=== PATIENT | female | born 1940 | race Caucasian/White ===

== ENCOUNTER 2023-03-17 13:40 | Outpatient (CLI) | payer MEDICARE, SELFPAY ==
[2023-03-17 13:54] LABS: Basophils Absolute Auto 0.1 K/mm3 (0.0-0.1); Basophils Percent Auto 0.6 % (0.2-1.2); Eosinophils Absolute Auto 0.2 K/mm3 (0-0.3); Eosinophils Percent Auto 2.1 % (0-4.4); Hematocrit 43.6 % (37.0-47.0); Hemoglobin 14.3 g/dL (12.0-15.0); Immature Granulocyte Absolute 0.03 K/mm3 (0.00-0.031); Immature Granulocyte Percent A 0.3 % (0-0.5); Lymphocytes Absolute Auto 2.94 K/mm3 (0.9-3.2); Lymphocytes Percent Auto 29.7 % (18.3-44.2); Mean Corpuscular HGB Conc 32.8 g/dl (32-36); Mean Corpuscular Hemoglobin 31.6 pg (26-34); Mean Corpuscular Volume 96.5 fl (80-100); Mean Platelet Volume 9.5 fl (7.4-10.4); Monocytes Absolute Auto 0.8 K/mm3 (0.1-0.6); Monocytes Percent Auto 8.5 % (2.6-8.5); Neutrophils Absolute Auto 5.8 K/mm3 (1.3-6.7); Neutrophils Percent Auto 58.8 % (45.5-73.1); Platelet Count Result 306 k/mm3 (150-375); Red Blood Count 4.52 M/mm3 (4.2-5.4); Red Cell Distribution Width 13.3 % (11.5-14.5); White Blood Count 9.9 K/mm3 (4.5-10.0)
[2023-03-17 14:02] LABS: Alanine Aminotransferase 23 U/L (6-35); Albumin Level 4.7 g/dL (3.5-5.1); Alkaline Phosphatase 75 U/L (38-126); Anion Gap 5 mmol/L (8-16); Aspartate Amino Transferase 29 U/L (14-36); Bilirubin,Total 0.7 mg/dL (0.2-1.3); Blood Urea Nitrogen 15 mg/dL (7-17); Calcium 9.6 mg/dL (8.4-10.2); Carbon Dioxide 28 mmol/L (22-30); Chloride 104 mmol/L (98-107); Estimated Glomerular Filt Rate > 60; Glucose 83 mg/dL (65-110); Potassium 4.7 mmol/L (3.4-5.0); Sodium 137 mmol/L (137-145)
[2023-03-21 11:02] LABS: Vitamin D 1,25 (OH)2 Total 49 pg/mL (18-72); Vitamin D2 1,25 (OH)2 <8 pg/mL; Vitamin D3 1,25 (OH)2 49 pg/mL
== END 2023-03-17 13:41 | disposition home or self-care (01) ==
PROVIDERS: PCP Family Medicine; Visit Provider Family Medicine
DX: R79.89 Other specified abnormal findings of blood chemistry (principal); E55.9 Vitamin D deficiency, unspecified; I10 Essential (primary) hypertension; Z13.29 Encounter for screening for other suspected endocrine disorder
CPT/HCPCS: 36415; 80053; 82652; 84443; 85025

== ENCOUNTER 2023-03-23 12:48 | Outpatient (CLI) | payer MEDICARE, SELFPAY ==
--- NOTE | ~2023-03-23 | DEXA_ITS ---
Bone Density Report Name: ALAN NGUYEN Age: 83 Sex: Female Ethnicity: White Date of : 1940 Indication: postmenopausal; screening for osteoporosis; height loss; Referring Provider: HOSSEIN REYEZ Study: Bone densitometry was performed. Exam Date: March 23, 2023 Accession number: [id number] Bone Density: Region BMD T-score Z-score Classification AP Spine(L1-L4) 0.929 -1.1 1.8 Osteopenia Femoral Neck (Left) 0.692 -1.4 1.1 Osteopenia Total Hip (Left) 0.856 -0.7 1.6 Normal Femoral Neck (Right) 0.692 -1.4 1.1 Osteopenia Total Hip (Right) 0.856 -0.7 1.6 Normal Total Hip Mean 0.856 -0.7 1.6 Normal World Health Organization criteria for BMD impression classify patients as: Normal (T-score at or above -1.0), Osteopenia (T-score between -1.0 and -2.5), or Osteoporosis (T-score at or below -2.5). 10-year Fracture Risk(1): Major Osteoporotic Fracture 13% Hip Fracture 3.5% Reported Risk Factors: [place] (), Neck BMD=0.692, BMI=26.1 (1) FRAX(R) Version 3.08. Fracture probability calculated for an untreated patient. Fracture probability may be lower if the patient has received treatment. Clinical Information Provided by Patient: Has used the following medications: Vitamin D Patient maximum height was 62 Menopause Age: 53 Onset of menses at age 13 Number of children 2 Impression: The patient has low bone mass, based on the Left Femoral Neck T-score. The patient has an estimated ten-year risk of hip fracture of 3.5% and an estimated ten-year risk of major fracture of 13%, based on the WHO FRAX algorithm. Discussion: BONE DENSITY IS LOW AT ONE OR MORE SKELETAL SITES. THE PATIENT'S BMD AND CLINICAL RISK FACTORS CONTRIBUTE TO THIS PATIENT'S INCREASED RISK OF FRACTURE. This patient's lowest T-score is low at one or more skeletal sites. It meets the World Health Organization's (WHO) criteria for ?low bone mass? (T-score between -1.0 and -2.5). The patient's 10-year risk of hip fracture as calculated by FRAX exceeds the threshold where pharmacological therapy is recommended by the National Osteoporosis Foundation (NOF). However, all treatment decisions require clinical judgment and consideration of individual patient factors, including patient preferences, comorbidities, previous drug use, risk factors not captured in the FRAX model (e.g., frailty, falls, vitamin D deficiency, increased bone turnover, interval significant decline in bone density) and possible under or overestimation of fracture risk by FRAX. The patient should follow a healthful lifestyle (good nutrition with adequate calcium and vitamin D, and appropriate weight-bearing exercise). Follow-Up: Consider a repeat BMD and Vertebral Fracture Assessment (VFA) exam in 2 years or sooner if medically n
== END 2023-03-23 12:49 | disposition home or self-care (01) ==
LOC: ANHIMG 12:50
PROVIDERS: PCP Family Medicine; Visit Provider Family Medicine
DX: Z78.0 Asymptomatic menopausal state (principal); M85.89 Other specified disorders of bone density and structure, multiple sites
CPT/HCPCS: 77080

== ENCOUNTER 2023-12-16 15:53 | Emergency (ER) | payer MEDICARE, SELFPAY ==
[2023-12-16 16:12] VITALS: BP 179/93; PULSE 97; RESP 18; TEMP 36.6; O2SAT 100
--- NOTE | 2023-12-16 17:11 | ED.WOUNDLAC ---
HPI - Wound/Laceration General Chief Complaint: Skin/Abscess/Foreign Body Stated Complaint: wound to left arm/shoulder Time Seen by Provider: 12/16/23 17:11 Source: patient Mode of arrival: ambulatory Limitations: no limitations History of Present Illness HPI narrative: Ana is an 83-year-old female patient presenting to the ER today with complaints of a wound to her left arm and shoulder. She states she does not know how long this has been going on for however she noticed it after walking outside in a grassy area. States that it is slightly painful and rates it a 2/10. She denies any fever or chills. Does have some open sores to the left shoulder and redness and swelling to the arm. Related Data Home Medications Medication Instructions Recorded Confirmed cholecalciferol (vitamin D3) 50 50 mcg PO DAILY 09/20/22 03/17/23 mcg (2,000 unit) capsule donepezil 10 mg tablet 10 mg PO QHS 09/20/22 03/17/23 latanoprost 0.005 % eye drops 1 drp EACH EYE DAILY 09/20/22 03/17/23 timolol 0.5 %-brimon 0.15 %-dorzol drp ophthalmic (eye) 09/20/22 03/17/23 2 %-latanopro 0.005 %(PF) eye drops turmeric 100 mg-lance 150 cap PO 09/20/22 03/17/23 mg-olive 50 mg-oreg 150 mg-capryl capsule Allergies Allergy/AdvReac Type Severity Reaction Status Date / Time mushroom Allergy Intermediate Swelling Verified 12/16/23 16:15 of Lip/Tongue/Throat Penicillins Allergy Intermediate Swelling Verified 12/16/23 16:15 of Lip/Tongue/Throat Review of Systems Review of Systems: Pertinent positives per HPI. Patient denies any fever, chills, headache, visual changes, dizziness, cough, runny nose, sore throat, shortness of breath, chest pain, palpitations, nausea, vomiting, diarrhea, constipation, abdominal pain, or any urinary issues. [facility] Past Medical History Medical History Alcohol use Alzheimer's dementia Benign essential HTN Benign mass of parotid gland Hx of needle biopsy Family History Family History Father Diabetes mellitus Hypertension Heart disease Mother Depression Thyroid disorder Hypertension Sibling Thyroid disorder Heart disease Hypertension Diabetes mellitus Social History Social History Social History: Smoking status: Never smoker Second hand tobacco smoke exposure: No Alcohol intake: current Drinks per week: 7 Alcohol use details: beer Substance use: never Substance use type: does not use Lack of Transportation: No Lack of Food: Never True Current Housing: I Have Housing Concerned About Future Housing: No Difficulty Paying Gas/Electric Bills: No Difficulty Paying for Meds: No Currently Unemployed: YES Education: Decline to Answer Difficulty w/ Childcare or Family Care: No Living arrangements: alone Occupation/Education: retired Gender identity (if verbalized by the patient): Female Sexual Orientation (if Verbalized by the Patient): Straight or Heterosexual Spiritual care concerns: No Agree to blood products: Yes Comments At the time of my signature, I reviewed and agree with the nursing past medical, surgical, social, and family history. There is no relevant family history pertinent to the patient complaint. Exam Narrative: General: Well-developed, well nourished, in no apparent distress Head: Normocephalic, atraumatic. Cardio: Regular rate and rhythm, s1 and s2 normal, no murmur appreciated. Resp: Clear to auscultation bilaterally, no rhonchi, rales, wheezing or rubs. Integumentary: Brantley, warm, and dry, open wounds to the left posterior shoulder with yellow eschar tissue, redness and mild tenderness to the left posterior shoulder down the lateral arm. Course Course Emergency Course: Portions of this record may have been created
[2023-12-16 18:00] VITALS: BP 167/64; O2SAT 100
[2023-12-16 18:09] LABS: Basophils Absolute Auto 0.1 K/mm3 (0.0-0.1); Basophils Percent Auto 0.5 % (0.2-1.2); Eosinophils Absolute Auto 0.1 K/mm3 (0-0.3); Eosinophils Percent Auto 0.8 % (0-4.4); Hematocrit 38.3 % (37.0-47.0); Hemoglobin 12.8 g/dL (12.0-15.0); Immature Granulocyte Absolute 0.06 K/mm3 (0.00-0.031); Immature Granulocyte Percent A 0.5 % (0-0.5); Lymphocytes Absolute Auto 3.59 K/mm3 (0.9-3.2); Lymphocytes Percent Auto 27.4 % (18.3-44.2); Mean Corpuscular HGB Conc 33.4 g/dl (32-36); Mean Corpuscular Hemoglobin 32.3 pg (26-34); Mean Corpuscular Volume 96.7 fl (80-100); Monocytes Absolute Auto 1.2 K/mm3 (0.1-0.6); Monocytes Percent Auto 9.2 % (2.6-8.5); Neutrophils Absolute Auto 8.1 K/mm3 (1.3-6.7); Neutrophils Percent Auto 61.6 % (45.5-73.1); Platelet Count Result 416 k/mm3 (150-375); Red Blood Count 3.96 M/mm3 (4.2-5.4); Red Cell Distribution Width 11.9 % (11.5-14.5); White Blood Count 13.1 K/mm3 (4.5-10.0)
[2023-12-16 18:17] VITALS: BP 151/67; O2SAT 100
[2023-12-16 18:21] LABS: Lactic Acid Reflex 1.9 mmol/L (0.7-2.0)
[2023-12-16 18:23] LABS: Alanine Aminotransferase 15 U/L (6-35); Anion Gap 14 mmol/L (4-12); Aspartate Amino Transferase 22 U/L (14-36); Bilirubin,Total 0.7 mg/dL (0.2-1.3); Blood Urea Nitrogen 14 mg/dL (7-17); Calcium 9.3 mg/dL (8.4-10.2); Carbon Dioxide 23 mmol/L (22-30); Chloride 101 mmol/L (98-107); Estimated CRCL calculation 32 ml/min; Estimated Glomerular Filt Rate 53; Glucose 110 mg/dL (65-110); Potassium 3.8 mmol/L (3.4-5.0); Sodium 138 mmol/L (137-145)
[2023-12-16 18:24] LABS: Albumin Level 4.6 g/dL (3.5-5.1); Alkaline Phosphatase 81 U/L (38-126)
[2023-12-16 18:39] LABS: CRP 2.3 mg/dL (<1.0)
[2023-12-16 18:49] LABS: Erythrocyte Sedimentation Rate 46 mm/hr (0-20)
[2023-12-16 19:00] VITALS: BP 163/77; PULSE 94; RESP 16; O2SAT 100
[2023-12-16] MEDS: DOXYCYCLINE HYCLATE 100 MG TABLET PO (19:51)
== END 2023-12-16 19:56 | disposition home or self-care (01) ==
PROVIDERS: Emergency Provider Nurse Practitioner Family; PCP Family Medicine
DX: L08.9 Local infection of the skin and subcutaneous tissue, unspecified (principal); B96.89 Other specified bacterial agents as the cause of diseases classified elsewhere; G30.9 Alzheimer's disease, unspecified; F02.80 Dementia in other diseases classified elsewhere, unspecified severity, without behavioral disturbance, psychotic disturbance, mood disturbance, and anxiety; I10 Essential (primary) hypertension
CPT/HCPCS: 36415; 80053; 83605; 85025; 85652; 86140; 87040; 87070; 87075; 87077; 87181; 87205; 99283; A9270

== ENCOUNTER 2023-12-18 10:33 | Observation (INO) | payer MEDICARE, SELFPAY ==
[2023-12-18] VITALS (7 sets, daily range): BP systolic 152–189; BP diastolic 65–76; PULSE 77–96; RESP 14–20; TEMP 35.6–37.4; O2SAT 100; BMI 25.8
--- NOTE | ~2023-12-18 | XR_ITS ---
XR chest 1V portable Ordering provider: Adrián Escobedo MD History: 83 years Female with . pos blood cultures . Comparison: None. FINDINGS: MEDIASTINUM: The cardiac silhouette is not enlarged. LUNGS: No infiltrates, effusions or pneumothorax. Tiny granuloma in the left upper lobe. OTHER: No free air under the diaphragm. IMPRESSION: No acute cardiopulmonary pathology. Reviewed, dictated and finalized at location A.
[2023-12-18 11:14] LABS: Basophils Absolute Auto 0.1 K/mm3 (0.0-0.1); Basophils Percent Auto 0.6 % (0.2-1.2); Eosinophils Absolute Auto 0.1 K/mm3 (0-0.3); Eosinophils Percent Auto 0.9 % (0-4.4); Hemoglobin 12.3 g/dL (12.0-15.0); Immature Granulocyte Absolute 0.04 K/mm3 (0.00-0.031); Immature Granulocyte Percent A 0.4 % (0-0.5); Lymphocytes Absolute Auto 2.47 K/mm3 (0.9-3.2); Lymphocytes Percent Auto 27.2 % (18.3-44.2); Mean Corpuscular HGB Conc 33.2 g/dl (32-36); Mean Corpuscular Hemoglobin 31.9 pg (26-34); Mean Corpuscular Volume 96.1 fl (80-100); Monocytes Absolute Auto 0.8 K/mm3 (0.1-0.6); Monocytes Percent Auto 9.2 % (2.6-8.5); Neutrophils Absolute Auto 5.6 K/mm3 (1.3-6.7); Neutrophils Percent Auto 61.7 % (45.5-73.1); Platelet Count Result 376 k/mm3 (150-375); Red Blood Count 3.85 M/mm3 (4.2-5.4); Red Cell Distribution Width 11.9 % (11.5-14.5); White Blood Count 9.1 K/mm3 (4.5-10.0)
[2023-12-18] MEDS: SODIUM CHLORIDE 0.9% IV 1,000 ML 999 ML IV CONT (11:16)
[2023-12-18 11:26] LABS: Lactic Acid Reflex 2.8 mmol/L (0.7-2.0)
[2023-12-18 11:31] LABS: Alanine Aminotransferase 13 U/L (6-35); Albumin Level 4.1 g/dL (3.5-5.1); Alkaline Phosphatase 62 U/L (38-126); Anion Gap 11 mmol/L (4-12); Aspartate Amino Transferase 19 U/L (14-36); Bilirubin,Total 0.5 mg/dL (0.2-1.3); Blood Urea Nitrogen 18 mg/dL (7-17); CRP 1.2 mg/dL (<1.0); Calcium 8.9 mg/dL (8.4-10.2); Carbon Dioxide 23 mmol/L (22-30); Chloride 102 mmol/L (98-107); Estimated CRCL calculation 34 ml/min; Estimated Glomerular Filt Rate > 60; Glucose 175 mg/dL (65-110); Magnesium 1.9 mg/dL (1.6-2.3); Potassium 3.7 mmol/L (3.4-5.0); Sodium 136 mmol/L (137-145)
[2023-12-18 11:45] LABS: Erythrocyte Sedimentation Rate 35 mm/hr (0-20)
[2023-12-18 12:03] LABS: Influenza A QL RT-PCR Negative (Negative); Influenza B QL RT-PCR Negative (Negative); RSV RNA, RT-PCR Negative (Negative); SARS-CoV-2 RNA PCR Negative (Negative)
[2023-12-18 12:44] LABS: Appearance Urine Clear (Clear); Bilirubin Urine Negative (Negative); Blood Urine Negative (Negative); Color Urine Yellow (Yellow); Glucose Urine UA Negative (Negative); Ketones Urine Negative (Negative); Leukocyte Esterase Ur Negative LEU/UL (Negative); Nitrate Urine Negative (Negative); Protein Urine Negative (Negative); Specific Grav Ur 1.008 (1.001-1.035)
[2023-12-18 12:51] LABS: Add Urine Microscopic? NO
--- NOTE | 2023-12-18 12:51 | ED.GENADULT ---
HPI - General Adult General Chief complaint: Unspecified Stated complaint: abnormal labs Time Seen by Provider: 12/18/23 10:43 History of Present Illness HPI narrative: This is an 83-year-old female with dementia presenting for positive blood cultures. She was seen here several days ago diagnosed with cellulitis of the left upper extremity. She was discharged on doxycycline. She was then called their primary care physician to inform her that she had a positive blood culture to return to the ED for evaluation. The patient is a poor historian due to dementia. She is unsure of when the cellulitis started on her upper arm. She believes that she may have been exposed to poison shawna but is unsure. She is denying any other complaints other than some pain and itching to her left arm. Related Data Home Medications Medication Instructions Recorded Confirmed cholecalciferol (vitamin D3) 50 50 mcg PO DAILY 09/20/22 03/17/23 mcg (2,000 unit) capsule donepezil 10 mg tablet 10 mg PO QHS 09/20/22 03/17/23 latanoprost 0.005 % eye drops 1 drp EACH EYE DAILY 09/20/22 03/17/23 timolol 0.5 %-brimon 0.15 %-dorzol drp ophthalmic (eye) 09/20/22 03/17/23 2 %-latanopro 0.005 %(PF) eye drops turmeric 100 mg-lance 150 cap PO 09/20/22 03/17/23 mg-olive 50 mg-oreg 150 mg-capryl capsule Allergies Allergy/AdvReac Type Severity Reaction Status Date / Time mushroom Allergy Intermediate Swelling Verified 12/18/23 10:42 of Lip/Tongue/Throat Penicillins Allergy Intermediate Swelling Verified 12/18/23 10:42 of Lip/Tongue/Throat PMFSH Past Medical History Medical History Alcohol use Alzheimer's dementia Benign essential HTN Benign mass of parotid gland Hx of needle biopsy Family History Family History Father Diabetes mellitus Hypertension Heart disease Mother Depression Thyroid disorder Hypertension Sibling Thyroid disorder Heart disease Hypertension Diabetes mellitus Social History Social History Social History: Smoking status: Never smoker Second hand tobacco smoke exposure: No Alcohol intake: current Drinks per week: 7 Alcohol use details: beer Substance use: never Substance use type: does not use Lack of Transportation: No Lack of Food: Never True Current Housing: I Have Housing Concerned About Future Housing: No Difficulty Paying Gas/Electric Bills: No Difficulty Paying for Meds: No Currently Unemployed: YES Education: Decline to Answer Difficulty w/ Childcare or Family Care: No Living arrangements: alone Occupation/Education: retired Gender identity (if verbalized by the patient): Female Sexual Orientation (if Verbalized by the Patient): Straight or Heterosexual Spiritual care concerns: No Agree to blood products: Yes Exam Narrative: APPEARANCE: No apparent distress. Head: atraumatic. EYES: EOMI, NOSE: Atraumatic NECK: Trachea midline RESPIRATORY: No increased rate of breathing clear auscultation CARDIOVASCULAR: RRR, ABDOMINAL: Non-distended soft nontender MUSCULOSKELETAl: No obvious deformities NEURO: Alert. Moving 4/4 extremities SKIN:: Left upper extremity has mottled areas of erythema, warmth and central ulceration. No areas of fluctuance to indicate abscess. No bullae or crepitus. Hand is neurovascularly intact. PSYCHIATRIC: Normal affect Course Vital Signs Vital signs: Vital Signs Temperature 97.8 F 12/18/23 10:38 Pulse Rate 96 12/18/23 10:38 Respiratory Rate 16 12/18/23 10:38 Blood Pressure 167/72 H 12/18/23 10:38 Pulse Oximetry 100 12/18/23 10:38 Oxygen Delivery Room Air 12/18/23 10:38 Temperature 97.8 F 12/18/23 10:38 Pulse Rate 85 12/18/23 10:47 Respiratory Rate 18 12/18/23 10:47 Blood Pressure 153/7
[2023-12-18 13:59] LABS: MRSA (PCR) NOT DETECTED (NOT DETECTE)
[2023-12-18 14:12] LABS: Reflex Lactic Acid Yes or No Add Lactic
--- NOTE | 2023-12-18 14:29 | PM.IMHP ---
H&P: HPI History of Present Illness Date/Time: 12/18/23 13:30 Chief Complaint: Positive blood culture. Narrative: This is a pleasant 83-year-old female with dementia and hypertension who presented to the emergency current via private vehicle at the instruction of her primary care physician for evaluation after she was found to have 1 positive blood culture drawn 12/18/2023. She is not an accurate historian due to her memory loss and some of the following history is supplemented via a review of her EMR as well as information provided by her daughter, Sharita. The patient typically wears long sleeves however she was wearing short sleeves the other day and Sharita noticed some redness and several wounds on the patient's arm so she brought her into the ED for evaluation. The patient was uncertain as to how the wounds occurred and she thinks maybe she was walking her dog in a grassy area and perhaps she got a bug bite. She was prescribed doxycycline and mupirocin cream for presumed bacterial skin infection and she was discharged home. She has been taking the antibiotic and is putting the ointment on but she cannot say whether or not it is improving. She has some discomfort in the left shoulder area and she reports that area is pruritic. She denies fever, chills, sweats, malaise, nausea, and vomiting. No known history of MRSA, eczema, autoimmune diseases, or any other skin conditions. In the ED: She was afebrile on arrival with blood pressures in the 150s systolic. Labs were significant for a WBC count of 9.1, ESR 35, CRP 1.2, lactic acid 2.8, BUN 18, glucose 175. She was given a 2 L normal saline bolus with normalization of her lactic acid level. She was also given 1500 mg of vancomycin and she is being admitted in this setting for further treatment and evaluation. Review of Systems Review of Systems: 12 systems were reviewed and are negative except for as per HPI. 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 Code status: Full code. Smoking status: Never smoker Second hand tobacco smoke exposure: No Alcohol intake: current Drinks per week: 7 Alcohol use details: 1 beer a day. Substance use: never Substance use type: does not use Do You Feel Safe in your Home?: Yes Lack of Transportation: No Lack of Food: Never True Current Housing: I Have Housing Concerned About Future Housing: No Difficulty Paying Gas/Electric Bills: No Difficulty Paying for Meds: No Currently Unemployed: No Education: Master's Degree or Higher Difficulty w/ Childcare or Family Care: No Spiritual care concerns: No Agree to blood products: Yes Meds Home Medications and Allergies Home Medications Medication Instructions Recorded Confirmed Type cholecalciferol (vitamin D3) 50 50 mcg PO DAILY 09/20/22 12/18/23 History mcg (2,000 unit) capsule donepezil 10 mg tablet 10 mg PO DAILY 09/20/22 12/18/23 History doxycycline monohydrate 100 mg 100 mg PO BID 10 days #20 caps 12/16/23 12/18/23 Rx capsule irbesartan 150 mg tablet 150 mg PO HS 12/18/23 12/18/23 History Allergies Allergy/AdvReac Type Severity Reaction Status Date / Time mushroom Allergy Intermediate Swelling Verified 12/18/23 10:42 of Lip/Tongue/Throat Penicillins Allergy Intermediate Swelling Verified 12/18/23 10:42 of Lip/Tongue/Throat Vital Signs Vital Signs - 24 hr
[2023-12-18] MEDS: VANCOMYCIN 1,500 MG/NS 500 ML BAG 250 MG IVPB (14:44)
--- NOTE | 2023-12-18 15:38 | ADMGEN ---
This patient, Ana Blackmon, was admitted to [facility] Surg Room 329-01. Patient/family oriented to hospital policies and general routines including ID bracelet, bed and alarms, visiting hours, pain management, procedures, bathroom and other care routines, personal items, smoking policy, room service/diet, and visiting hours. Information on how to activate the Rapid Response Team has been discussed. Patient/Family are encouraged to report perceived risks to care and to ask questions if they do not understand what they are told or what they should do.
[2023-12-18] MEDS: CLOBETASOL PROPIONATE 0.05% OINT 30 GM 1 APPLIC TOPICAL ×2 (17:21→20:09)
[2023-12-18] MEDS: IRBESARTAN 150 MG TABLET PO (20:09)
[2023-12-19 05:48] VITALS: BP 139/53; PULSE 80; RESP 16; TEMP 35.8; O2SAT 98
[2023-12-19 06:28] LABS: Hematocrit 35.2 % (37.0-47.0); Hemoglobin 11.6 g/dL (12.0-15.0); Mean Corpuscular Hemoglobin 31.7 pg (26-34); Mean Corpuscular Volume 96.2 fl (80-100); Mean Platelet Volume 8.9 fl (7.4-10.4); Platelet Count Result 332 k/mm3 (150-375); Red Blood Count 3.66 M/mm3 (4.2-5.4); Red Cell Distribution Width 11.9 % (11.5-14.5)
[2023-12-19 07:05] LABS: Anion Gap 10 mmol/L (4-12); Blood Urea Nitrogen 11 mg/dL (7-17); Calcium 8.7 mg/dL (8.4-10.2); Carbon Dioxide 21 mmol/L (22-30); Chloride 107 mmol/L (98-107); Estimated CRCL calculation 39 ml/min; Estimated Glomerular Filt Rate > 60; Glucose 91 mg/dL (65-110); Magnesium 1.9 mg/dL (1.6-2.3); Sodium 138 mmol/L (137-145)
[2023-12-19 07:19] LABS: Hemoglobin A1C 5.5 % (<5.7)
[2023-12-19] MEDS: CHOLECALCIFEROL 1,000 UNITS TABLET 2000 UNITS PO (08:05)
[2023-12-19] MEDS: DONEPEZIL HCL 10 MG TABLET PO (08:05)
[2023-12-19] MEDS: CLOBETASOL PROPIONATE 0.05% OINT 30 GM 1 APPLIC TOPICAL (08:06)
[2023-12-19] MEDS: ENOXAPARIN 40 MG/0.4 ML SYRINGE SUB-Q (08:06)
[2023-12-19] MEDS: DOXYCYCLINE HYCLATE 100 MG TABLET PO (09:56)
--- NOTE | 2023-12-20 18:25 | PM.DS ---
DS: Admitting Diagnosis Discharge Date 12/19/23 Admitting Diagnosis Dermatitis DS: Discharge Diagnosis Discharge Diagnosis (1) Dermatitis: Code(s): L30.9 - Dermatitis, unspecified Status: Acute DS: Summary Hospital Course Hospital Course: H&P via Brittny Fisher PA-C This is a pleasant 83-year-old female with dementia and hypertension who presented to the emergency current via private vehicle at the instruction of her primary care physician for evaluation after she was found to have 1 positive blood culture drawn 12/18/2023. She is not an accurate historian due to her memory loss and some of the following history is supplemented via a review of her EMR as well as information provided by her daughter, Sharita. The patient typically wears long sleeves however she was wearing short sleeves the other day and Sharita noticed some redness and several wounds on the patient's arm so she brought her into the ED for evaluation. The patient was uncertain as to how the wounds occurred and she thinks maybe she was walking her dog in a grassy area and perhaps she got a bug bite. She was prescribed doxycycline and mupirocin cream for presumed bacterial skin infection and she was discharged home. She has been taking the antibiotic and is putting the ointment on but she cannot say whether or not it is improving. She has some discomfort in the left shoulder area and she reports that area is pruritic. She denies fever, chills, sweats, malaise, nausea, and vomiting. No known history of MRSA, eczema, autoimmune diseases, or any other skin conditions. In the ED: She was afebrile on arrival with blood pressures in the 150s systolic. Labs were significant for a WBC count of 9.1, ESR 35, CRP 1.2, lactic acid 2.8, BUN 18, glucose 175. She was given a 2 L normal saline bolus with normalization of her lactic acid level. She was also given 1500 mg of vancomycin and she ----- The patient presented to the emergency department for evaluation after she was found to have 1 positive blood culture which was drawn 2 days ago in the ED as detailed in HPI. Labs, imaging, EKG, and all reports were personally reviewed. Staphylococcal hominis was noted to be growing from the aerobic bottle in only 1 set of blood cultures and this is likely a contaminant. A wound culture obtained from 1 of the left upper extremity ulcers is growing normal skin salvador. Lactic acid level was a bit elevated however was likely related to blood draw technique as she is not toxic in appearance. Nonetheless repeat blood cultures have been obtained. She has been on doxycycline for a couple of days which should be taken to completion as it was previously thought there was an underlying bacterial infection. Findings today indicate a more chronic process in part due to what appears to be ongoing picking and scratching. Clobetasol ordered to see how she responds. She should be able to be discharged tomorrow with Dermatology follow-up. Blood pressures have been running a bit high though she is due for her nighttime antihypertensives. Random glucose was 175 thus will check a fasting glucose and hemoglobin A1c. Findings and treatment plan were discussed with the patient and her daughter Sharita. Questions were solicited and answered to satisfaction. The patient's medical management will be taken over by the hospitalist team in a.m. ----- Patient discharged on 12/20/2023 in stable condition. The use of high potency steroid her dermatitis is greatly resolved. She denies any symptomatology displays any signs of infectious process/sepsis. She and her daughter feels she is ready for discharge and they have been provided a dermatology referral and they have 1 themselves as well. Educated on the warning signs of infection. Educated on the proper use of steroids and steroid holiday. Will also follow-up within 1 week with her PCP. Time Spent with Patient Time attestation: Total time spent providing and/or coordinating disc
== END 2023-12-19 11:05 | disposition home or self-care (01) ==
LOC: ANHED 14:19 → ANH3MEDSUR 14:34
PROVIDERS: Physician Assistant; Admitting Provider General Practice; Emergency Provider Emergency Medicine; PCP Family Medicine; Visit Provider General Practice
DX: L30.9 Dermatitis, unspecified (principal); R78.81 Bacteremia; R73.9 Hyperglycemia, unspecified; G30.9 Alzheimer's disease, unspecified; F02.80 Dementia in other diseases classified elsewhere, unspecified severity, without behavioral disturbance, psychotic disturbance, mood disturbance, and anxiety; I10 Essential (primary) hypertension; Z20.822 Contact with and (suspected) exposure to COVID-19
CPT/HCPCS: 36415; 71045; 80048; 80053; 81003; 83036; 83605; 83735; 85025; 85027; 85652; 86140; 87040; 87077; 87637; 87641; 96361; 96372; 96374; 99285; A9270; G0378; J1650; J3370; J7030

== ENCOUNTER 2023-12-21 10:50 | Outpatient (CLI) | payer MEDICARE, SELFPAY ==
[2023-12-21 11:55] LABS: Basophils Absolute Auto 0.1 K/mm3 (0.0-0.1); Basophils Percent Auto 0.6 % (0.2-1.2); Eosinophils Absolute Auto 0.1 K/mm3 (0-0.3); Eosinophils Percent Auto 0.9 % (0-4.4); Hematocrit 37.9 % (37.0-47.0); Hemoglobin 12.5 g/dL (12.0-15.0); Immature Granulocyte Absolute 0.05 K/mm3 (0.00-0.031); Immature Granulocyte Percent A 0.5 % (0-0.5); Lymphocytes Absolute Auto 3.22 K/mm3 (0.9-3.2); Lymphocytes Percent Auto 33.4 % (18.3-44.2); Mean Corpuscular Hemoglobin 32.1 pg (26-34); Mean Corpuscular Volume 97.2 fl (80-100); Mean Platelet Volume 9.2 fl (7.4-10.4); Monocytes Absolute Auto 0.8 K/mm3 (0.1-0.6); Monocytes Percent Auto 8.6 % (2.6-8.5); Neutrophils Absolute Auto 5.4 K/mm3 (1.3-6.7); Platelet Count Result 375 k/mm3 (150-375); Red Cell Distribution Width 12.2 % (11.5-14.5); White Blood Count 9.6 K/mm3 (4.5-10.0)
== END 2023-12-21 10:51 | disposition home or self-care (01) ==
LOC: ANHLAB 10:53
PROVIDERS: PCP Family Medicine; Visit Provider General Practice
DX: R78.81 Bacteremia (principal)
CPT/HCPCS: 36415; 85025; 87040

== ENCOUNTER → 2024-04-01 14:20 | Outpatient (REF) | payer MEDICARE, SELFPAY | LOC: ANHLAB 14:20 | PROVIDERS: PCP Family Medicine; Visit Provider Plastic Surgery | DX: C44.629 Squamous cell carcinoma of skin of left upper limb, including shoulder (principal); C44.619 Basal cell carcinoma of skin of left upper limb, including shoulder; L57.8 Other skin changes due to chronic exposure to nonionizing radiation | CPT/HCPCS: 88305 ==